=== PATIENT | female | born 1950 | race African-American/Black ===

== ENCOUNTER 2018-07-06 15:57 | Inpatient (IN) | payer MEDICARE, MEDICAID ==
[~2018-07-06] VITALS: Ht 157.5 cm; Wt 52.2 kg
[2018-07-06] MEDS ORDERED: LEVO25TA7 PO (16:09)
[2018-07-06] MEDS ORDERED: MORPHINE SULFATE 4 MG/ML CPJ (NOT FOR IM USE) IV STA (17:32)
[2018-07-06] MEDS ORDERED: SODIUM CHLORIDE 0.9% 1,000 ML IV ONE (17:32)
[2018-07-06] MEDS ORDERED: ONDANSETRON HCL 4MG/2ML INJ IV STA (17:32)
[2018-07-06 18:10] LABS: BASOPHILS % 0.2 % (0.0-2.0); HEMATOCRIT. 34.6 % (36.0-48.0); HEMOGLOBIN. 11.9 g/dL (12.0-16.0); LYMPHOCYTES % 9.7 % (20.0-50.0); MEAN CORPUSCULAR HEMOGLOBIN 30.5 pg (28.0-32.0); MEAN CORPUSCULAR VOLUME 88.9 fL (81.0-99.0); MEAN PLATELET VOLUME 8.1 fl (7.4-10.4); MONOCYTES % 10.3 % (2.0-8.0); NEUTROPHILS % 79.8 % (40.0-76.0); PLATELET 250 x1000/uL (130-400); RED CELL DISTRIBUTION WIDTH 13.6 % (11.6-14.6)
[2018-07-06] MEDS ORDERED: FAMOTIDINE 20MG/2ML VIAL IV ONE (18:15)
[2018-07-06 18:16] LABS: CHLORIDE 77 mEq/L (98-107)
[2018-07-06 18:24] LABS: ETHANOL BLOOD 79 mg/dL
[2018-07-06] MEDS ORDERED: LORAZEPAM 2MG/ML CPJ IV ONE (18:45)
[2018-07-06 18:47] LABS: *AMPHETAMINES SCREEN URINE NEGATIVE (NEGATIVE); *BARBITURATES SCREEN URINE NEGATIVE (NEGATIVE); *BENZODIAZEPINES SCREEN URINE NEGATIVE (NEGATIVE); *COCAINE SCREEN URINE NEGATIVE (NEGATIVE)
[2018-07-06 18:48] LABS: CANNABINOID URINE SCREEN NEGATIVE (NEGATIVE); METHADONE URINE SCREEN NEGATIVE (NEGATIVE); OPIATES URINE SCREEN NEGATIVE (NEGATIVE); PHENCYCLIDINE URINE SCREEN NEGATIVE (NEGATIVE)
[2018-07-06] MEDS ORDERED: ONDANSETRON HCL 4MG/2ML INJ IV PRN (20:00)
[2018-07-06] MEDS ORDERED: MAGNESIUM/ALUMINUM HYDROXIDE/SIMETHICONE 30ML UDC PO PRN (20:00)
[2018-07-06] MEDS ORDERED: CLONIDINE 0.1MG TABLET PO PRN (20:00)
[2018-07-06 22:00] VITALS: BP 136/68
[2018-07-06 22:06] VITALS: BP 136/68
[2018-07-06] MEDS ORDERED: PROP40TA7 MT (22:11)
[2018-07-06] MEDS ORDERED: FURO-152 MT (22:11)
[2018-07-06] MEDS ORDERED: TRAZ150T78 MT (22:11)
[2018-07-06] MEDS ORDERED: BUSP30TA2 MT (22:11)
[2018-07-06] MEDS ORDERED: HYDR-2412 MT (22:11)
[2018-07-06] MEDS ORDERED: POTA10CA42 MT (22:11)
[2018-07-06] MEDS ORDERED: OMEP20CA10 MT (22:11)
[2018-07-06] MEDS ORDERED: FLUO40CA8 MT (22:11)
[2018-07-06] MEDS: MULTIVITAMINS,THER W-MINERALS TABLET PO SCH (22:29)
[2018-07-06] MEDS: PANTOPRAZOLE SODIUM 40 MG/VIAL IV SCH (22:29)
[2018-07-06] MEDS: LORAZEPAM 2MG/ML CPJ IV PRN (22:30)
[2018-07-06] MEDS: ACETAMINOPHEN 325MG TABLET PO PRN (22:30)
[2018-07-06] MEDS: THIAMINE HCL 100MG TABLET PO SCH (22:30)
[2018-07-06] MEDS ORDERED: DEXT 5%/0.45% NACL KCL 10MEQ/L 1,000 ML IV SCH (23:00)
[2018-07-07] VITALS: BP 112/57
[2018-07-07 07:27] LABS: HEMATOCRIT. 30.5 % (36.0-48.0); HEMOGLOBIN. 10.8 g/dL (12.0-16.0); MEAN CORPUSCULAR HEMOGLOBIN 31.4 pg (28.0-32.0); MEAN CORPUSCULAR VOLUME 88.9 fL (81.0-99.0); MEAN PLATELET VOLUME 8.5 fl (7.4-10.4); PLATELET 208 x1000/uL (130-400); RED BLOOD CELL COUNT 3.43 mill/uL (4.2-5.4); RED CELL DISTRIBUTION WIDTH 13.8 % (11.6-14.6)
[2018-07-07 07:39] LABS: CHLORIDE 82 mEq/L (98-107)
[2018-07-07 08:00] VITALS: BP 115/73
[2018-07-07] MEDS: MULTIVITAMINS,THER W-MINERALS TABLET PO SCH (10:15)
[2018-07-07] MEDS: PANTOPRAZOLE SODIUM 40 MG/VIAL IV SCH (10:15)
[2018-07-07] MEDS: THIAMINE HCL 100MG TABLET PO SCH (10:15)
[2018-07-07] MEDS: FOLIC ACID 1MG TABLET PO SCH (10:15)
[2018-07-07 12:00] VITALS: BP 132/60
[2018-07-07] MEDS: CHLORDIAZEPOXIDE 25MG CAPSULE PO SCH ×2 (13:28→21:29)
[2018-07-07] MEDS: SODIUM CHLORIDE 3% 500 ML IV SCH (13:37)
[2018-07-07] MEDS: ACETAMINOPHEN 325MG TABLET PO PRN (13:42)
[2018-07-07 16:00] VITALS: BP 140/62
[2018-07-07 19:08] LABS: PLATELET ESTIMATE NORMAL
[2018-07-07 20:00] VITALS: BP 100/46
[2018-07-07 20:30] LABS: CHLORIDE 90 mEq/L (98-107)
[2018-07-07] MEDS: LORAZEPAM 2MG/ML CPJ IV PRN (20:45)
[2018-07-07] MEDS: DOCUSATE SODIUM 100MG CAPSULE PO PRN (21:33)
[2018-07-08] VITALS: BP 102/56
[2018-07-08] MEDS: TRAZODONE HCL 50MG TABLET PO SCH ×2 (00:16→20:55)
[2018-07-08 04:00] VITALS: BP 126/55
[2018-07-08] MEDS: CHLORDIAZEPOXIDE 25MG CAPSULE PO SCH ×3 (06:03→22:02)
[2018-07-08] MEDS: HYDROXYZINE 25MG TABLET PO SCH ×3 (06:03→22:02)
[2018-07-08 08:00] VITALS: BP 126/59
[2018-07-08] MEDS ORDERED: MEDICATION NOT ON FORMULARY EA (Furosemide (Lasix) 1 TAB) MT SCH (09:00)
[2018-07-08] MEDS ORDERED: MEDICATION NOT ON FORMULARY EA (Potassium Chloride 1 CAP) MT SCH (09:00)
[2018-07-08] MEDS ORDERED: BUSPIRONE HCL MT SCH (09:00)
[2018-07-08] MEDS ORDERED: MEDICATION NOT ON FORMULARY EA (Fluoxetine Hcl (Prozac) 1 CAP) MT SCH (09:00)
[2018-07-08] MEDS ORDERED: PROPRANOLOL HCL MT SCH (09:00)
[2018-07-08] MEDS: POTASSIUM CHLORIDE 10MEQ TABLET SR PO SCH (10:16)
[2018-07-08] MEDS: PROPRANOLOL HCL 20MG TABLET PO SCH ×2 (10:17→21:00)
[2018-07-08] MEDS: FOLIC ACID 1MG TABLET PO SCH (10:17)
[2018-07-08] MEDS: FLUOXETINE HCL 20MG CAPSULE PO SCH (10:17)
[2018-07-08] MEDS: BUSPIRONE HCL 10MG TABLET PO SCH ×2 (10:18→17:01)
[2018-07-08] MEDS: LEVOTHYROXINE SODIUM 25MCG TABLET PO SCH (10:18)
[2018-07-08] MEDS: PANTOPRAZOLE SODIUM 40 MG/VIAL IV SCH (10:18)
[2018-07-08] MEDS: MULTIVITAMINS,THER W-MINERALS TABLET PO SCH (10:18)
[2018-07-08] MEDS: FAMOTIDINE 20MG TABLET PO SCH ×2 (10:18→17:01)
[2018-07-08] MEDS: THIAMINE HCL 100MG TABLET PO SCH (10:18)
[2018-07-08] MEDS: FUROSEMIDE 20MG TABLET PO SCH (10:19)
[2018-07-08] MEDS: DOCUSATE SODIUM 100MG CAPSULE PO PRN (10:21)
[2018-07-08] MEDS: SODIUM CHLORIDE 3% 500 ML IV SCH (10:24)
[2018-07-08 11:54] LABS: CHLORIDE 102 mEq/L (98-107)
[2018-07-08 12:04] VITALS: BP 126/59
[2018-07-08 14:05] LABS: AMMONIA 124 uMol/L (<32)
[2018-07-08 16:32] VITALS: BP 107/64
[2018-07-08] MEDS: LACTULOSE 20G/30ML UDC PO SCH (17:02)
[2018-07-08] MEDS: ACETAMINOPHEN 325MG TABLET PO PRN (17:53)
[2018-07-08] MEDS ORDERED: MEDICATION NOT ON FORMULARY EA (Trazodone Hcl 1 TAB) MT SCH (21:00)
[2018-07-08 21:07] VITALS: BP 96/48
[2018-07-09] VITALS: BP 88/38
[2018-07-09] MEDS: SODIUM CHLORIDE 0.9% 1,000 ML IV SCH ×2 (03:44→16:50)
[2018-07-09 04:00] VITALS: BP 110/39
[2018-07-09] MEDS: HYDROXYZINE 25MG TABLET PO SCH ×3 (05:40→23:12)
[2018-07-09] MEDS: CHLORDIAZEPOXIDE 25MG CAPSULE PO SCH ×3 (05:40→23:11)
[2018-07-09] MEDS: MULTIVITAMINS,THER W-MINERALS TABLET PO SCH (08:05)
[2018-07-09] MEDS: FUROSEMIDE 20MG TABLET PO SCH (08:05)
[2018-07-09] MEDS: BUSPIRONE HCL 10MG TABLET PO SCH ×2 (08:05→18:27)
[2018-07-09] MEDS: LEVOTHYROXINE SODIUM 25MCG TABLET PO SCH (08:05)
[2018-07-09] MEDS: FLUOXETINE HCL 20MG CAPSULE PO SCH (08:05)
[2018-07-09] MEDS: POTASSIUM CHLORIDE 10MEQ TABLET SR PO SCH (08:05)
[2018-07-09] MEDS: THIAMINE HCL 100MG TABLET PO SCH (08:05)
[2018-07-09] MEDS: LACTULOSE 20G/30ML UDC PO SCH ×3 (08:05→18:28)
[2018-07-09] MEDS: FAMOTIDINE 20MG TABLET PO SCH ×2 (08:05→18:28)
[2018-07-09] MEDS: FOLIC ACID 1MG TABLET PO SCH (08:05)
[2018-07-09] MEDS: PANTOPRAZOLE SODIUM 40 MG/VIAL IV SCH (08:06)
[2018-07-09 09:38] LABS: AMMONIA 28 uMol/L (<32)
[2018-07-09 09:42] LABS: CHLORIDE 105 mEq/L (98-107)
[2018-07-09 12:00] VITALS: BP 111/61
[2018-07-09] MEDS: PROPRANOLOL HCL 20MG TABLET PO SCH (12:15)
[2018-07-09] MEDS: ACETAMINOPHEN 325MG TABLET PO PRN (13:01)
[2018-07-09 16:00] VITALS: BP 111/61
[2018-07-09] MEDS: MAGNESIUM OXIDE 400MG TABLET PO SCH (18:33)
[2018-07-09 20:25] VITALS: BP 102/51
[2018-07-09] MEDS: TRAZODONE HCL 50MG TABLET PO SCH (23:10)
[2018-07-09 23:55] VITALS: BP 104/44
[2018-07-10 04:00] VITALS: BP 109/43
[2018-07-10] MEDS: SODIUM CHLORIDE 0.9% 1,000 ML IV SCH ×2 (06:10→22:56)
[2018-07-10 08:00] VITALS: BP 122/53
[2018-07-10 08:41] VITALS: BP 122/53
[2018-07-10] MEDS: MAGNESIUM OXIDE 400MG TABLET PO SCH (09:00)
[2018-07-10] MEDS: FUROSEMIDE 20MG TABLET PO SCH (11:50)
[2018-07-10] MEDS: FOLIC ACID 1MG TABLET PO SCH (11:50)
[2018-07-10] MEDS: MULTIVITAMINS,THER W-MINERALS TABLET PO SCH (11:50)
[2018-07-10] MEDS: POTASSIUM CHLORIDE 10MEQ TABLET SR PO SCH (11:50)
[2018-07-10] MEDS: FAMOTIDINE 20MG TABLET PO SCH ×2 (11:50→17:24)
[2018-07-10] MEDS: DOCUSATE SODIUM 100MG CAPSULE PO PRN (11:51)
[2018-07-10] MEDS: THIAMINE HCL 100MG TABLET PO SCH (11:51)
[2018-07-10] MEDS: LACTULOSE 20G/30ML UDC PO SCH ×3 (11:59→17:00)
[2018-07-10] MEDS: PANTOPRAZOLE SODIUM 40 MG/VIAL IV SCH (11:59)
[2018-07-10 12:00] VITALS: BP 107/54
[2018-07-10] MEDS: LEVOTHYROXINE SODIUM 25MCG TABLET PO SCH (12:00)
[2018-07-10] MEDS: FLUOXETINE HCL 20MG CAPSULE PO SCH (12:00)
[2018-07-10] MEDS: BUSPIRONE HCL 10MG TABLET PO SCH ×2 (12:00→17:24)
[2018-07-10 16:00] VITALS: BP 100/53
[2018-07-10] MEDS: HYDROXYZINE 25MG TABLET PO SCH ×2 (17:19→22:56)
[2018-07-10] MEDS: CHLORDIAZEPOXIDE 25MG CAPSULE PO SCH ×2 (17:19→22:56)
[2018-07-10 20:00] VITALS: BP 102/52
[2018-07-10] MEDS: TRAZODONE HCL 50MG TABLET PO SCH (20:41)
[2018-07-11] VITALS: BP 109/53
[2018-07-11 04:00] VITALS: BP 125/60
[2018-07-11] MEDS: CHLORDIAZEPOXIDE 25MG CAPSULE PO SCH ×3 (05:54→21:01)
[2018-07-11] MEDS: HYDROXYZINE 25MG TABLET PO SCH ×3 (05:54→21:01)
[2018-07-11 08:00] VITALS: BP 128/58
[2018-07-11] MEDS: SODIUM CHLORIDE 0.9% 1,000 ML IV SCH (08:25)
[2018-07-11] MEDS: LACTULOSE 20G/30ML UDC PO SCH ×3 (08:26→16:12)
[2018-07-11] MEDS: PANTOPRAZOLE SODIUM 40 MG/VIAL IV SCH (08:27)
[2018-07-11] MEDS: FUROSEMIDE 20MG TABLET PO SCH (08:27)
[2018-07-11] MEDS: BUSPIRONE HCL 10MG TABLET PO SCH ×2 (08:27→16:12)
[2018-07-11] MEDS: FAMOTIDINE 20MG TABLET PO SCH ×2 (08:27→16:12)
[2018-07-11] MEDS: MAGNESIUM OXIDE 400MG TABLET PO SCH (08:27)
[2018-07-11] MEDS: MULTIVITAMINS,THER W-MINERALS TABLET PO SCH (08:27)
[2018-07-11] MEDS: POTASSIUM CHLORIDE 10MEQ TABLET SR PO SCH (08:28)
[2018-07-11] MEDS: THIAMINE HCL 100MG TABLET PO SCH (08:28)
[2018-07-11] MEDS: FLUOXETINE HCL 20MG CAPSULE PO SCH (08:28)
[2018-07-11] MEDS: FOLIC ACID 1MG TABLET PO SCH (08:28)
[2018-07-11] MEDS: LEVOTHYROXINE SODIUM 25MCG TABLET PO SCH (08:28)
[2018-07-11 12:00] VITALS: BP 105/49
[2018-07-11 16:00] VITALS: BP 96/52
[2018-07-11] MEDS: ACETAMINOPHEN 325MG TABLET PO PRN (16:12)
[2018-07-11 20:00] VITALS: BP 125/84
[2018-07-11] MEDS: TRAZODONE HCL 50MG TABLET PO SCH (21:01)
[2018-07-12] VITALS: BP 120/54
[2018-07-12] MEDS: SODIUM CHLORIDE 0.9% 1,000 ML IV SCH ×2 (00:09→18:17)
[2018-07-12 04:00] VITALS: BP 144/70
[2018-07-12] MEDS: HYDROXYZINE 25MG TABLET PO SCH ×3 (05:35→21:11)
[2018-07-12] MEDS: CHLORDIAZEPOXIDE 25MG CAPSULE PO SCH ×2 (05:35→13:44)
[2018-07-12 08:00] VITALS: BP 141/63
[2018-07-12] MEDS: FLUOXETINE HCL 20MG CAPSULE PO SCH (08:34)
[2018-07-12] MEDS: LACTULOSE 20G/30ML UDC PO SCH ×3 (08:34→17:00)
[2018-07-12] MEDS: ACETAMINOPHEN 325MG TABLET PO PRN ×2 (08:34→18:19)
[2018-07-12] MEDS: LEVOTHYROXINE SODIUM 25MCG TABLET PO SCH (08:35)
[2018-07-12] MEDS: POTASSIUM CHLORIDE 10MEQ TABLET SR PO SCH (08:35)
[2018-07-12] MEDS: FOLIC ACID 1MG TABLET PO SCH (08:35)
[2018-07-12] MEDS: MULTIVITAMINS,THER W-MINERALS TABLET PO SCH (08:35)
[2018-07-12] MEDS: THIAMINE HCL 100MG TABLET PO SCH (08:35)
[2018-07-12] MEDS: BUSPIRONE HCL 10MG TABLET PO SCH ×2 (08:35→18:17)
[2018-07-12] MEDS: FAMOTIDINE 20MG TABLET PO SCH ×2 (08:35→18:17)
[2018-07-12] MEDS: MAGNESIUM OXIDE 400MG TABLET PO SCH (08:35)
[2018-07-12] MEDS: FUROSEMIDE 20MG TABLET PO SCH (08:35)
[2018-07-12 12:00] VITALS: BP 106/57
[2018-07-12 16:00] VITALS: BP 104/44
[2018-07-12 20:00] VITALS: BP 126/72
[2018-07-12] MEDS: TRAZODONE HCL 50MG TABLET PO SCH (21:11)
[2018-07-13] VITALS: BP 124/70
[2018-07-13 04:00] VITALS: BP 130/72
[2018-07-13] MEDS: SODIUM CHLORIDE 0.9% 1,000 ML IV SCH (05:28)
[2018-07-13] MEDS: HYDROXYZINE 25MG TABLET PO SCH (05:28)
[2018-07-13 08:00] VITALS: BP 138/61
[2018-07-13] MEDS: FUROSEMIDE 20MG TABLET PO SCH (08:40)
[2018-07-13] MEDS: FLUOXETINE HCL 20MG CAPSULE PO SCH (08:40)
[2018-07-13] MEDS: POTASSIUM CHLORIDE 10MEQ TABLET SR PO SCH (08:40)
[2018-07-13] MEDS: FOLIC ACID 1MG TABLET PO SCH (08:40)
[2018-07-13] MEDS: BUSPIRONE HCL 10MG TABLET PO SCH (08:40)
[2018-07-13] MEDS: LEVOTHYROXINE SODIUM 25MCG TABLET PO SCH (08:41)
[2018-07-13] MEDS: MULTIVITAMINS,THER W-MINERALS TABLET PO SCH (08:41)
[2018-07-13] MEDS: MAGNESIUM OXIDE 400MG TABLET PO SCH (08:41)
[2018-07-13] MEDS: FAMOTIDINE 20MG TABLET PO SCH ×2 (08:41→17:27)
[2018-07-13] MEDS: THIAMINE HCL 100MG TABLET PO SCH (08:41)
[2018-07-13] MEDS: LACTULOSE 20G/30ML UDC PO SCH (08:47)
[2018-07-13 12:00] VITALS: BP 101/46
[2018-07-13] MEDS: ACETAMINOPHEN 325MG TABLET PO PRN (15:04)
[2018-07-13 16:00] VITALS: BP 102/56
[2018-07-13 19:08] VITALS: BP 115/58
== END 2018-07-13 19:08 | DRG 641 ==
LOC: ER 16:23 → EDBEDREQ 18:44 → 7WST 18:50 → EDBEDREQTM 19:04 → EDBEDREQ 19:04 → SUPCPDRO 19:46 → CANRESERV 20:19 → ENRESERV 20:19
PROVIDERS: ADMIT Hospitalist; ATTEND Hospitalist
DX: E87.1 Hypo-osmolality and hyponatremia (principal); F10.239 Alcohol dependence with withdrawal, unspecified; E03.9 Hypothyroidism, unspecified; F32.9 Major depressive disorder, single episode, unspecified; F41.9 Anxiety disorder, unspecified; I95.9 Hypotension, unspecified; R26.81 Unsteadiness on feet; F17.210 Nicotine dependence, cigarettes, uncomplicated; Z88.2 Allergy status to sulfonamides; Z79.899 Other long term (current) drug therapy
CPT/HCPCS: 36415; 70450; 71045; 80048; 80053; 80305; 82140; 83690; 83735; 83880; 84484; 85025; 93005; 93970; 96361; 96374; 96375; 97116; 97530; 99285; C9113; G0482; J2060; J2405; J3490; J7030; J7040